=== PATIENT | female | born 1975 | race Caucasian/White ===

== ENCOUNTER 2021-12-17 22:58 | Emergency (ER) | payer SELFPAY ==
[~2021-12-17] VITALS: Ht 160 cm; Wt 79.4 kg
[2021-12-17 23:12] VITALS: BP 157/81
[2021-12-17] MEDS ORDERED: KETOROLAC 60 MG/2 ML VIAL IM ONE (23:15)
--- NOTE | 2021-12-17 23:20 | NUR ---
TO LOBBY FOLLOWING TRIAGE
[2021-12-17 23:33] LABS: APPEARANCE,URINE CLEAR (CLEAR); BILIRUBIN,URINE NEGATIVE (NEGATIVE); BLOOD, URINE NEGATIVE (NEGATIVE); COLOR,URINE YELLOW (YELLOW); LEUKOCYTE ESTERASE ,URINE NEGATIVE (NEGATIVE); NITRITE, URINE NEGATIVE (NEGATIVE); UGLUCOSE 3+ (NEGATIVE)
[2021-12-18 00:03] LABS: RBC,URINE 0-5 /HPF (0-5)
[2021-12-18] MEDS ORDERED: cefTRIAXone 1,000 MG in LIDOCAINE MPF 1% 2.1 ML IM ONE (00:30)
[2021-12-18] MEDS ORDERED: cefTRIAXone 1,000 MG VIAL ONE (00:48)
[2021-12-18] MEDS ORDERED: LIDOCAINE MPF 1% 5 ML ONE (00:48)
[2021-12-18] MEDS ORDERED: NAPR-54 PO (01:05)
[2021-12-18] MEDS ORDERED: CIPR500T4 PO (01:05)
--- NOTE | 2021-12-18 01:08 | NUR ---
Patient discharged with v/s stable. Written and verbal after care instructions given and explained. Patient alert, oriented and verbalized understanding of instructions. Ambulatory with steady gait. All questions addressed prior to discharge. ID band removed. Patient advised to follow up with PMD. Rx of cipro and keflex given. Patient educated on indication of medication including possible reaction and side effects. Opportunity to ask questions provided and answered.
--- NOTE | 2021-12-21 16:28 | NUR ---
LATE ENTRY. RECEIVED POSITIVE URINE CULTURE RESULT. FORM GIVEN TO DR CAZARES. TREATMENT APPROPRIATE. FORM PLACED IN BINDER
--- NOTE | 2021-12-21 16:28 | NUR ---
Mara morales in EDM - 12/21/21 at 1630 by [email or web address] LATE ENTRY. RECEIVED POSITIVE URINE CULTURE RESULT. FORM GIVEN TO DR CAZARES. TREATMENT APPROPRIATE. FORM PLACED IN CHART.
== END 2021-12-18 01:08 | disposition home or self-care (01) ==
LOC: MED 22:58
DX: N12 Tubulo-interstitial nephritis, not specified as acute or chronic (principal); N39.0 Urinary tract infection, site not specified; I10 Essential (primary) hypertension; Z86.73 Personal history of transient ischemic attack (TIA), and cerebral infarction without residual deficits; Z79.899 Other long term (current) drug therapy; Z72.89 Other problems related to lifestyle; Z90.49 Acquired absence of other specified parts of digestive tract
CPT/HCPCS: 81001; 87086; 96372; 99284; J0696; J1885; J2001